=== PATIENT | female | born 2000 | race African-American/Black ===

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

== ENCOUNTER 2019-04-23 07:46 | Emergency (ER) | payer OTHER ==
[~2019-04-23] VITALS: Ht 170.2 cm; Wt 87.5 kg
[2019-04-23 07:50] VITALS: Ht 170.2 cm; Wt 87.5 kg
[2019-04-23 09:55] VITALS: BP 112/76
== END 2019-04-23 09:55 | disposition home or self-care (01) ==
LOC: ED 07:46
DX: D17.23 Benign lipomatous neoplasm of skin and subcutaneous tissue of right leg (principal)

== ENCOUNTER 2019-06-07 18:32 | Emergency (ER) | payer OTHER ==
[~2019-06-07] VITALS: Ht 167.6 cm; Wt 679.5 kg
[2019-06-07 18:38] VITALS: Ht 167.6 cm; Wt 679.5 kg
[2019-06-07 22:09] VITALS: BP 128/78
== END 2019-06-07 22:09 | disposition home or self-care (01) ==
LOC: ED 18:32
DX: T78.40XA Allergy, unspecified, initial encounter (principal); L50.9 Urticaria, unspecified; X58.XXXA Exposure to other specified factors, initial encounter
CPT/HCPCS: Q0163